=== PATIENT | female | born 1990 | race African-American/Black ===

== ENCOUNTER 2017-04-08 11:38 | Emergency (ER) | payer OTHER ==
[2017-04-08 11:44] VITALS: BP 132/71
[2017-04-08] MEDS ORDERED: OXYCODONE-ACETAMINOPHEN 5-325 MG TABLET PO ONE (12:59)
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
[2017-04-08] MEDS ORDERED: METHOCARBAMOL 500 MG TABLET PO ONE (15:38)
[2017-04-08] MEDS ORDERED: IBUPROFEN 800 MG TABLET PO ONE (15:38)
== END 2017-04-08 16:00 | disposition home or self-care (01) ==
LOC: ER 11:38
DX: S16.1XXA Strain of muscle, fascia and tendon at neck level, initial encounter (principal); S39.012A Strain of muscle, fascia and tendon of lower back, initial encounter; V49.50XA Passenger injured in collision with unspecified motor vehicles in traffic accident, initial encounter; R51 Headache; M50.822 Other cervical disc disorders at C5-C6 level
CPT/HCPCS: 72070; 72110; 72125; 72220; 81025; 99284